=== PATIENT | male | born 1960 | race African-American/Black ===

== ENCOUNTER 2017-02-08 13:53 | Emergency (ER) | payer MEDICARE, OTHER ==
[~2017-02-08] VITALS: Ht 185.4 cm; Wt 85.5 kg
[~2017-02-08 13:53] MED LIST: ASPI81TA42 PO; FURO-151 PO; INSLAN SQ; LISI-662 PO
[2017-02-08 14:07] LABS: GLUCOSE,POINT OF CARE 185 MG/DL (70-110)
[2017-02-08 14:43] LABS: EOSINOPHILS % (AUTO) 0.2 % (1.0-6.0); HEMATOCRIT 35.6 % (41-53); HEMOGLOBIN 11.7 g/dL (13.5-17.5); LYMPHOCYTES # (AUTO) 1.2 K/uL (1.0-4.8); LYMPHOCYTES % (AUTO) 12.9 % (22.0-44.0); MEAN CORPUSCULAR HEMOGLOBIN 32.1 pg (26.0-34.0); MEAN CORPUSCULAR HGB CONC 32.8 G/dL (31.0-37.0); MEAN CORPUSCULAR VOLUME 98 fL (80-100); MONOCYTES # (AUTO) 0.6 K/uL (0.1-1.0); MONOCYTES % (AUTO) 6.2 % (2.0-9.0); NEUTROPHILS # (AUTO) 7.5 K/uL (1.8-7.7); NEUTROPHILS % (AUTO) 80.7 % (40.0-70.0); PLATELET COUNT (AUTO) 244 K/uL (150-450); RED BLOOD CELL COUNT(AUTO) 3.65 MIL/uL (4.50-5.90); RED CELL DISTRIBUTION WIDTH 13.2 % (11.5-14.5); WHITE BLOOD COUNT (AUTO) 9.3 K/uL (4.5-11.0)
[2017-02-08 14:58] LABS: CALCIUM, TOTAL 7.9 mg/dL (8.8-10.5); CREATININE 8.26 mg/dL (0.60-1.30); POTASSIUM 4.8 mmol/L (3.5-5.1)
[2017-02-08] MEDS ORDERED: ALBUTEROL SULFATE 5 MG/ML 20 ML NEB SOLN [BULK] NEB ONE (15:00)
[2017-02-08] MEDS ORDERED: IPRATROPIUM BROMIDE 0.5 MG/2.5 ML NEB SOLUTION NEB ONE (15:00)
[2017-02-08 15:04] LABS: ALBUMIN 2.9 g/dL (3.4-5.0); BILIRUBIN,TOTAL 0.4 mg/dL (0.1-1.0); TOTAL PROTEIN, SERUM 7.8 g/dL (6.4-8.2)
[2017-02-08 15:20] LABS: APPEARANCE,URINE CLEAR (CLEAR); GLUCOSE, URINE (UA) 100 mg/dL (NEGATIVE); KETONES,URINE NEGATIVE (NEGATIVE); LEUKOCYTE ESTERASE ,URINE NEGATIVE (NEGATIVE); OCCULT BLOOD,URINE SMALL (NEGATIVE); PH,URINE 8.5 (5.0-8.0); PROTEIN,URINE SEE CONFIRM (NEGATIVE)
[2017-02-08 15:26] LABS: ADD UA MICROSCOPIC YES
[2017-02-08 15:28] LABS: FINE GRANULAR CASTS,URINE 0-2 /LPF (None Seen); SQUAMOUS EPITHELIAL CELL,UR Many /LPF (None Seen); SULFOSALICYLIC ACID,URINE 4+ (Negative); WBC,URINE 0-2 /HPF (0-5)
[2017-02-08 15:41] LABS: INFLUENZA TYPE B NEGATIVE FOR TYPE B (NEGATIVE)
[2017-02-08 15:52] VITALS: BP 134/72
== END 2017-02-08 16:09 | disposition home or self-care (01) ==
LOC: EMS 13:56
DX: J20.9 Acute bronchitis, unspecified (principal); I13.11 Hypertensive heart and chronic kidney disease without heart failure, with stage 5 chronic kidney disease, or end stage renal disease; E11.22 Type 2 diabetes mellitus with diabetic chronic kidney disease; N18.6 End stage renal disease; E78.00 Pure hypercholesterolemia, unspecified; F17.210 Nicotine dependence, cigarettes, uncomplicated; Z99.2 Dependence on renal dialysis
CPT/HCPCS: 82962; 87804; 99284; 99285; 99406

== ENCOUNTER → 2017-10-16 | Outpatient (CLI) | payer MEDICARE, OTHER | END | disposition home or self-care (01) | LOC: RADMN 08:57 | PROVIDERS: ATTEND Specialist | DX: M16.0 Bilateral primary osteoarthritis of hip (principal); M94.251 Chondromalacia, right hip; M94.252 Chondromalacia, left hip; S73.191D Other sprain of right hip, subsequent encounter; X58.XXXD Exposure to other specified factors, subsequent encounter | CPT/HCPCS: 72195 ==

== ENCOUNTER 2017-11-21 17:37 | Emergency (ER) | payer MEDICARE, OTHER ==
[~2017-11-21] VITALS: Ht 185.4 cm; Wt 90.9 kg
[2017-11-21 17:48] LABS: GLUCOSE,POINT OF CARE 175 MG/DL (70-110)
[2017-11-21 18:31] LABS: EOSINOPHILS # (AUTO) 0.19 K/uL (0.00-0.70); HEMATOCRIT 38.2 % (41-53); HEMOGLOBIN 12.5 g/dL (13.5-17.5); LYMPHOCYTES # (AUTO) 1.6 K/uL (1.0-4.8); LYMPHOCYTES % (AUTO) 14.4 % (22.0-44.0); MEAN CORPUSCULAR HEMOGLOBIN 32.9 pg (26.0-34.0); MEAN CORPUSCULAR HGB CONC 32.7 G/dL (31.0-37.0); MEAN CORPUSCULAR VOLUME 101 fL (80-100); MONOCYTES # (AUTO) 0.8 K/uL (0.1-1.0); MONOCYTES % (AUTO) 7.4 % (2.0-9.0); NEUTROPHILS # (AUTO) 8.3 K/uL (1.8-7.7); NEUTROPHILS % (AUTO) 75.6 % (40.0-70.0); PLATELET COUNT (AUTO) 199 K/uL (150-450); RED BLOOD CELL COUNT(AUTO) 3.79 MIL/uL (4.50-5.90); RED CELL DISTRIBUTION WIDTH 14.3 % (11.5-14.5)
[2017-11-21 18:43] LABS: PROTHROMBIN TIME 10.4 SEC (9.4-11.6)
[2017-11-21 18:47] LABS: ANION GAP 14 mmol/L (8-16); CALCIUM, TOTAL 7.6 mg/dL (8.8-10.5); CARBON DIOXIDE 29 mmol/L (22-29); CHLORIDE 93 mmol/L (98-107); CREATININE 13.25 mg/dL (0.60-1.30); GLOMERULAR FILTR. RATE CALC 5 mL/min (>60); GLUCOSE,RANDOM 188 mg/dL (70-110); POTASSIUM 5.3 mmol/L (3.5-5.1); SODIUM SERUM 136 mmol/L (136-145); UREA NITROGEN, BLOOD 77 mg/dL (7-18)
[2017-11-21 19:10] LABS: B-TYPE NATRIURETIC PEPTIDE 196 pg/mL (0-100)
[2017-11-21 19:12] LABS: ALANINE AMINOTRANSFERASE 51 U/L (12-78); ALBUMIN 3.7 g/dL (3.4-5.0); ALKALINE PHOSPHATASE 145 U/L (46-116); ASPARTATE AMINOTRANSFERASE 41 U/L (15-37); BILIRUBIN,TOTAL 0.4 mg/dL (0.1-1.0); CREATINE KINASE MB 2.8 ng/mL (0-5); CREATINE KINASE, TOTAL 474 U/L (39-308); TOTAL PROTEIN, SERUM 8.4 g/dL (6.4-8.2)
[2017-11-21] MEDS ORDERED: ONDANSETRON HCL 4 MG/2 ML VIAL IVP ONE (19:45)
[2017-11-22 01:33] VITALS: BP 115/62
[2017-11-22 02:14] VITALS: BP 142/78
== END 2017-11-22 01:28 | disposition other institution (70) ==
LOC: EMS 17:38 → AHU 22:30 → UNDOADMIN 22:30 → EMS 11-22 01:28
DX: I13.11 Hypertensive heart and chronic kidney disease without heart failure, with stage 5 chronic kidney disease, or end stage renal disease (principal); E11.22 Type 2 diabetes mellitus with diabetic chronic kidney disease; N18.6 End stage renal disease; I25.10 Atherosclerotic heart disease of native coronary artery without angina pectoris; E87.5 Hyperkalemia; F17.210 Nicotine dependence, cigarettes, uncomplicated; Z99.2 Dependence on renal dialysis; Z79.4 Long term (current) use of insulin; Z79.82 Long term (current) use of aspirin
CPT/HCPCS: 36415; 70450; 71045; 80053; 82140; 82550; 82553; 82962; 83880; 84484; 85025; 85610; 85730; 93005; 96374; 99285; J2405

== ENCOUNTER 2017-11-22 08:16 | Inpatient (IN) | payer MEDICARE, OTHER ==
[~2017-11-22] VITALS: Ht 185.4 cm; Wt 89.3 kg
[2017-11-22 08:58] LABS: BASOPHILS % (AUTO) 0.8 % (0.0-2.0); EOSINOPHILS % (AUTO) 1.1 % (1.0-6.0); HEMATOCRIT 37.5 % (41-53); HEMOGLOBIN 12.6 g/dL (13.5-17.5); LYMPHOCYTES # (AUTO) 1.3 K/uL (1.0-4.8); LYMPHOCYTES % (AUTO) 12.8 % (22.0-44.0); MEAN CORPUSCULAR HEMOGLOBIN 33.4 pg (26.0-34.0); MEAN CORPUSCULAR HGB CONC 33.5 G/dL (31.0-37.0); MEAN CORPUSCULAR VOLUME 100 fL (80-100); MONOCYTES # (AUTO) 0.7 K/uL (0.1-1.0); MONOCYTES % (AUTO) 7.2 % (2.0-9.0); NEUTROPHILS # (AUTO) 7.6 K/uL (1.8-7.7); NEUTROPHILS % (AUTO) 78.1 % (40.0-70.0); PLATELET COUNT (AUTO) 208 K/uL (150-450); RED BLOOD CELL COUNT(AUTO) 3.76 MIL/uL (4.50-5.90); RED CELL DISTRIBUTION WIDTH 14.7 % (11.5-14.5)
[2017-11-22 09:23] LABS: PROTHROMBIN TIME 10.7 SEC (9.4-11.6)
[2017-11-22 09:55] LABS: CALCIUM, TOTAL 8.4 mg/dL (8.8-10.5); CREATININE 15.07 mg/dL (0.60-1.30); POTASSIUM 5.8 mmol/L (3.5-5.1)
[2017-11-22 10:01] LABS: ALBUMIN 3.9 g/dL (3.4-5.0); BILIRUBIN,TOTAL 0.5 mg/dL (0.1-1.0); TOTAL PROTEIN, SERUM 8.9 g/dL (6.4-8.2)
[2017-11-22] MEDS ORDERED: 0.9% SODIUM CHLORIDE 5 ML NEB SOLUTION NEB ONE (10:13)
[2017-11-22] MEDS ORDERED: SODIUM BICARBONATE [ADULT] 8.4% 50 MEQ/50 ML SYRINGE IVP ONE (10:15)
[2017-11-22] MEDS ORDERED: ALBUTEROL SULFATE 2.5 MG/0.5 ML NEB SOLUTION NEB ONE (10:15)
[2017-11-22] MEDS ORDERED: DEXTROSE 50%-WATER 25 GM/50 ML SYRINGE IVP ONE (10:15)
[2017-11-22] MEDS ORDERED: INSULIN REGULAR, HUMAN 100 UNITS/ML IVP ONE (10:15)
[2017-11-22] MEDS ORDERED: ACETAMINOPHEN 325 MG TABLET PO PRN ×2 (10:15→10:45)
[2017-11-22] MEDS ORDERED: 0.9% SODIUM CHLORIDE 10 ML SYRINGE IVP PRN (10:15)
[2017-11-22] MEDS ORDERED: INSULIN ASPART 100 UNITS/ML SQ PRN (10:45)
[2017-11-22] MEDS ORDERED: DEXTROSE 50%-WATER 25 GM/50 ML SYRINGE IVP PRN (10:45)
[2017-11-22] MEDS: ASPIRIN 81 MG CHEWABLE TABLET PO SCH (11:10)
[2017-11-22] MEDS: VITAMIN B COMP/VIT C/FOLIC ACID CAPSULE PO SCH (11:35)
[2017-11-22 13:02] VITALS: BP 120/97
[2017-11-22 15:18] LABS: GLUCOSE,POINT OF CARE 97 MG/DL (70-110)
[2017-11-22] MEDS ORDERED: LORazepam 2 MG/ML VIAL IVP ONE (15:45)
[2017-11-22] MEDS ORDERED: PNEUMOCOCCAL VACCINE POLYVALENT 0.5 ML VIAL [PPSV23] IM ONE (16:30)
[2017-11-22 17:51] VITALS: BP 116/64
[2017-11-22] MEDS ORDERED: LORazepam 2 MG/ML VIAL IM ONE (19:30)
[2017-11-22] MEDS ORDERED: DiphenhydrAMINE HCL 50 MG/ML VIAL IM ONE (19:30)
[2017-11-22] MEDS ORDERED: HALOPERIDOL LACTATE 5 MG/ML VIAL IM ONE (19:30)
[2017-11-22] MEDS: DOCUSATE SODIUM 100 MG CAPSULE PO SCH (19:44)
[2017-11-23] MEDS: ASPIRIN 81 MG CHEWABLE TABLET PO SCH (08:54)
[2017-11-23] MEDS: VITAMIN B COMP/VIT C/FOLIC ACID CAPSULE PO SCH (08:55)
[2017-11-23] MEDS: DOCUSATE SODIUM 100 MG CAPSULE PO SCH ×2 (08:55→22:30)
[2017-11-23] MEDS ORDERED: LORazepam 2 MG/ML VIAL IVP PRN (12:00)
[2017-11-23] MEDS ORDERED: HALOPERIDOL LACTATE 5 MG/ML VIAL IM PRN (12:00)
[2017-11-23] MEDS: LORazepam 2 MG/ML VIAL IM PRN ×2 (13:32→19:02)
[2017-11-24] MEDS ORDERED: SODIUM CHLORIDE 0.9% 2,000 ML IV ONE (07:34)
[2017-11-24 07:59] LABS: BASOPHILS % (AUTO) 0.5 % (0.0-2.0); EOSINOPHILS % (AUTO) 2.1 % (1.0-6.0); HEMATOCRIT 33.3 % (41-53); HEMOGLOBIN 11.4 g/dL (13.5-17.5); LYMPHOCYTES # (AUTO) 1.3 K/uL (1.0-4.8); LYMPHOCYTES % (AUTO) 18.1 % (22.0-44.0); MEAN CORPUSCULAR HEMOGLOBIN 34.3 pg (26.0-34.0); MEAN CORPUSCULAR HGB CONC 34.3 G/dL (31.0-37.0); MEAN CORPUSCULAR VOLUME 100 fL (80-100); MONOCYTES # (AUTO) 0.6 K/uL (0.1-1.0); MONOCYTES % (AUTO) 7.7 % (2.0-9.0); NEUTROPHILS # (AUTO) 5.2 K/uL (1.8-7.7); NEUTROPHILS % (AUTO) 71.6 % (40.0-70.0); PLATELET COUNT (AUTO) 203 K/uL (150-450); RED BLOOD CELL COUNT(AUTO) 3.33 MIL/uL (4.50-5.90); RED CELL DISTRIBUTION WIDTH 14.8 % (11.5-14.5)
[2017-11-24] MEDS: DOCUSATE SODIUM 100 MG CAPSULE PO SCH (09:00)
[2017-11-24] MEDS: ASPIRIN 81 MG CHEWABLE TABLET PO SCH (09:00)
[2017-11-24] MEDS: VITAMIN B COMP/VIT C/FOLIC ACID CAPSULE PO SCH (09:00)
[2017-11-24 09:13] LABS: CALCIUM, TOTAL 7.7 mg/dL (8.8-10.5); CREATININE 14.75 mg/dL (0.60-1.30); POTASSIUM 5.3 mmol/L (3.5-5.1)
== END 2017-11-24 14:26 | disposition home or self-care (01) | DRG 640 ==
LOC: EMS 08:24 → AHU 12:46 → 5N 17:36 → 6N 11-23 17:00
PROVIDERS: ADMIT Internal Medicine; ATTEND Internal Medicine
PROC: 5A1D70Z Performance of Urinary Filtration, Intermittent, Less than 6 Hours Per Day (ICD-10-PCS; principal; 2017-11-24)
DX: E87.5 Hyperkalemia (principal); N18.6 End stage renal disease; E11.22 Type 2 diabetes mellitus with diabetic chronic kidney disease; I12.0 Hypertensive chronic kidney disease with stage 5 chronic kidney disease or end stage renal disease; D64.9 Anemia, unspecified; E78.00 Pure hypercholesterolemia, unspecified; F29 Unspecified psychosis not due to a substance or known physiological condition; F60.9 Personality disorder, unspecified; I45.81 Long QT syndrome; F17.210 Nicotine dependence, cigarettes, uncomplicated; Z79.4 Long term (current) use of insulin; Z79.899 Other long term (current) drug therapy; Z82.49 Family history of ischemic heart disease and other diseases of the circulatory system; Z83.3 Family history of diabetes mellitus; Z91.19 Patient's noncompliance with other medical treatment and regimen; Z99.2 Dependence on renal dialysis; Z79.82 Long term (current) use of aspirin; Z90.49 Acquired absence of other specified parts of digestive tract
CPT/HCPCS: 70450; 82962; 84132; 87081; 87340; 90935; 93005; 94640; 96374; 96375; 99285; 99291; G0480; J1200; J1630; J1815; J2060; J2405; J3490; J7030